=== PATIENT | female | born 1975 | race Hispanic/Latino ===

== ENCOUNTER 2021-09-29 09:48 | Observation (INO) | payer OTHER ==
[~2021-09-29] VITALS: Ht 154.9 cm; Wt 77.1 kg
[2021-09-29 10:21] LABS: HEMATOCRIT 37.2 % (36-48); MEAN CORPUSCULAR HEMOGLOBIN 26.7 pg (27.0-33.0); MEAN CORPUSCULAR HGB CONC 32.3 g/dL (32.0-36.0); MEAN CORPUSCULAR VOLUME 82.7 fL (79-99); PLATELET COUNT (AUTO) 416 K/uL (130-400); RED CELL DISTRIBUTION WIDTH 16.7 % (11.0-15.5); WHITE BLOOD COUNT (AUTO) 8.5 K/uL (4.8-10.8)
[2021-09-29 10:48] LABS: CREATININE 0.6 mg/dL (0.5-1.5); POTASSIUM 3.7 mmol/L (3.5-5.1)
[2021-09-29 10:49] LABS: ALBUMIN 3.9 g/dL (3.5-5.0); TOTAL PROTEIN, SERUM 8.5 g/dL (6.0-8.3)
[2021-09-29] MEDS ORDERED: SOLU-MEDROL 125MG VIAL IVP ONE (12:00)
[2021-09-29] MEDS ORDERED: FAMOTIDINE 20MG VIAL IV ONE (12:00)
[2021-09-29] MEDS ORDERED: DiphenhydrAMINE HCL 50 MG/ML VIAL IV ONE (12:00)
[2021-09-29] MEDS ORDERED: 0.9%NACL 1000ML 1,000 ML IV ONE (12:00)
[2021-09-29 12:02] LABS: BAND NEUTROPHILS % (MANUAL) 1 % (0-2); EOSINOPHILS % (MANUAL) 1 % (1-6); LYMPHOCYTES % (MANUAL) 28 % (22-44); MAN.DIFF COMMENT-IMPRESSION MANUAL DIFFERENTIAL; MONOCYTES % (MANUAL) 11 % (2-9); SEGMENTED NEUTROPHILS % 59 % (40-70)
[2021-09-29 12:03] LABS: PLATELET MORPHOLOGY COMMENT SLIGHT INCREASED
[2021-09-29] MEDS ORDERED: IOHEXOL 350 MG/ML 100ML INFUS..BTL IV ONE (14:56)
[2021-09-29] MEDS ORDERED: ACETAMINOPHEN 325 MG TAB PO ONE (15:30)
[2021-09-29] MEDS ORDERED: ONDANSETRON 4MG INJ IVP ONE (15:30)
[2021-09-29] MEDS ORDERED: LORAZEPAM 1 MG TABLET PO ONE (16:00)
[2021-09-29 16:22] LABS: ABG BASE EXCESS -0.7 mmol/L (-2.0-3.0); ABG HCO3 20.6 mmol/L (21.0-28.0); ABG OXYGEN SATURATION 98.3 % (95.0-99.0); ABG PCO2 26 mmHg (32-45)
[2021-09-29 17:07] LABS: CRP QUANTITATIVE 17.4 mg/L (0.00-9.0)
[2021-09-29 17:45] LABS: AMPHET/METH SCREEN,URINE POSITIVE (NEGATIVE); BENZODIAZEPINES SCREEN,URINE NEGATIVE (NEGATIVE); CANNABINOID SCREEN,URINE NEGATIVE (NEGATIVE); COCAINE SCREEN,URINE POSITIVE (NEGATIVE); PHENCYCLIDINE SCREEN,URINE NEGATIVE (NEGATIVE)
[2021-09-29] MEDS ORDERED: GUAIFENESIN-DM 200/20 MG 10 ML PO PRN (18:30)
[2021-09-29] MEDS ORDERED: NITROGLYCERIN 0.4 MG SL TAB SL PRN (18:30)
[2021-09-29] MEDS ORDERED: MAG/ALUM/SIMETH 30 ML UDCUP PO PRN (18:30)
[2021-09-29] MEDS ORDERED: LACTULOSE 20 GM/30 ML UDCUP PO PRN (18:30)
[2021-09-29] MEDS ORDERED: ACETAMINOPHEN 325 MG TAB PO PRN ×2 (18:30)
[2021-09-29] MEDS ORDERED: ONDANSETRON 4MG INJ IV PRN (18:30)
[2021-09-29] MEDS ORDERED: DiphenhydrAMINE HCL 50 MG/ML VIAL IV PRN (18:30)
[2021-09-29] MEDS: FAMOTIDINE 20MG TAB PO SCH (20:58)
[2021-09-29 22:18] VITALS: BP 121/80
[2021-09-29 22:21] VITALS: BP 136/80
[2021-09-29 22:23] VITALS: BP 104/82
[2021-09-30 02:21] LABS: HEPATITIS A IGM ANTIBODY Non-Reactive (Nonreactive); HEPATITIS B CORE IGM ANTIBODY Non-Reactive (Negative); HEPATITIS B SURFACE ANTIGEN Non-Reactive (Nonreactive); HEPATITIS C ANTIBODY Non-Reactive (Nonreactive)
[2021-09-30 04:33] VITALS: BP 108/70
[2021-09-30 06:44] LABS: HEMATOCRIT 34.5 % (36-48); MEAN CORPUSCULAR HEMOGLOBIN 26.6 pg (27.0-33.0); MEAN CORPUSCULAR HGB CONC 32.2 g/dL (32.0-36.0); MEAN CORPUSCULAR VOLUME 82.7 fL (79-99); RED BLOOD CELL COUNT(AUTO) 4.17 MIL/uL (4.00-5.50); RED CELL DISTRIBUTION WIDTH 16.7 % (11.0-15.5); WHITE BLOOD COUNT (AUTO) 15.8 K/uL (4.8-10.8)
[2021-09-30 07:08] LABS: ALBUMIN 3.5 g/dL (3.5-5.0); CREATININE 0.8 mg/dL (0.5-1.5); POTASSIUM 4.5 mmol/L (3.5-5.1); TOTAL PROTEIN, SERUM 7.8 g/dL (6.0-8.3)
[2021-09-30 08:00] VITALS: BP 138/84
[2021-09-30] MEDS: FAMOTIDINE 20MG TAB PO SCH (08:21)
[2021-09-30] MEDS ORDERED: SERT-438 PO (11:39)
[2021-09-30 12:00] VITALS: BP 117/81
[2021-10-04 08:14] LABS: OPIATES SCREEN URINE Negative ng/mL (Cutoff=300)
== END 2021-09-30 12:55 | disposition home or self-care (01) ==
LOC: EDH 09:48 → EDHIP 09:49 → 3AH 22:08
PROVIDERS: ADMIT Internal Medicine; ATTEND Internal Medicine
DX: F14.129 Cocaine abuse with intoxication, unspecified (principal); Z20.822 Contact with and (suspected) exposure to COVID-19; F15.129 Other stimulant abuse with intoxication, unspecified; L50.9 Urticaria, unspecified; E78.5 Hyperlipidemia, unspecified; E78.00 Pure hypercholesterolemia, unspecified; R06.00 Dyspnea, unspecified; R00.0 Tachycardia, unspecified; Z98.51 Tubal ligation status; Z79.899 Other long term (current) drug therapy
CPT/HCPCS: 96374; 96361; 96375; 99285; 82550; 84484; 80053 ×2; 82803; 80305; 85025; 85378; 85651; 87804 ×2; 82375; 80074; 86701; 87390; 86140; 36415 ×2; 87635; 71045; 71270; 93005; 85027; G0378 ×19; C9803; J1200; J3490; J7030; J2930; J2405; Q9967